=== PATIENT | male | born 1995 | race Two or more races ===

== ENCOUNTER → 2020-08-25 | Outpatient (CLI) | payer SELFPAY | LOC: M LABSMTC 11:43 | PROVIDERS: ATTEND Pediatrics | DX: Z20.822 Contact with and (suspected) exposure to COVID-19 (principal) ==

== ENCOUNTER → 2020-09-26 | Outpatient (CLI) | payer SELFPAY | LOC: M LABSMTC 09:33 | PROVIDERS: ATTEND Pediatrics | DX: Z20.822 Contact with and (suspected) exposure to COVID-19 (principal) ==